=== PATIENT | female | born 1950 | race Two or more races ===

== ENCOUNTER 2016-12-03 07:43 | Observation (INO) | payer OTHER ==
--- NOTE | 2016-12-03 08:00 | CPEKG ---
Heart Rate: 74 RR Interval: 811 P-R Interval: 188 QRSD Interval: 82 QT Interval: 416 QTC Interval: 462 P [place]: 28 QRS [place]: -9 T Wave [place]: 41 EKG Severity - NORMAL ECG - EKG Impression: SINUS RHYTHM Electronically Signed By: Den Mayo 03-Dec-2016 08:31:29
[2016-12-03] MEDS ORDERED: ASPIRIN 81 MG CHEWABLE TAB PO ONE (08:29)
--- NOTE | 2016-12-03 08:29 | EDPHY ---
H & P Time Seen by Provider: 12/03/16 08:02 HPI/ROS: Chief complaint. Chest pain HPI. 66-year-old female presents emergency department with complaint of 2 weeks chest heaviness and pressure that radiates to her back. Symptoms are worse with walking and relieved by rest. Activities that she could do 1 month ago she can no longer do because it causes the chest pressure. 1 month ago she had a chest cold with cough and fever that has now resolved. For the past 2 weeks she feels better with lying down because when she gets up and walks around she has the chest pressure. Again symptoms are relieved by rest. She denies that she has shortness of breath with her symptoms of chest pressure. She does get slightly nauseated however. No diaphoresis. She has had no similar symptoms previously. She tells me no history heart lung, diabetes, hypertension history however she also tells me that whenever she goes to the dentist that they have told her that her blood pressure is high. No unusual leg pain or swelling ROS Constitutional. no fever/chills, no weakness Eyes. no problems with vision ENT. no sore throat, no nasal drainage Cardiovascular. Chest pressure radiating to back Respiratory. no shortness of breath, no cough Abdominal. No abdominal pain but slight nausea when she symptomatic . no problems urinating MS. no calf pain/swelling, no neck/back pain, no joint pain Skin. no rash Lymph. no swollen glands Neuro. Difficulty walking because of her symptoms. Past Medical/Surgical History: Past medical history heart murmur, bladder cancer Family history father of an [place] at age 75 Social History: , nonsmoker, no alcohol Smoking Status: Never smoked Physical Exam: General Appearance: Alert well-developed female mild distress vital signs significant for blood pressure 205/113 Eyes: Pupils equal and round no pallor or injection. ENT, Mouth: Mucous membranes are moist. Respiratory: There are no retractions, lungs are clear to auscultation. Cardiovascular: Regular rate and rhythm. Gastrointestinal: Abdomen is soft and nontender, no masses, bowel sounds normal. Neurological: Awake and alert, sensory and motor exams grossly normal. Skin: Warm and dry, no rashes. Musculoskeletal: Neck is supple nontender. Extremities symmetrical, full range of motion. Psychiatric: Patient is oriented X 3, there is no agitation. Constitutional: Initial Vital Signs Temperature (C) 36.6 C 12/03/16 08:07 Heart Rate 81 12/03/16 08:07 Respiratory Rate 18 12/03/16 08:07 Blood Pressure 192/116 H 12/03/16 08:07 O2 Sat (%) 100 12/03/16 08:07 O2 Delivery Mode Room Air Allergies/Adverse Reactions: Penicillins Allergy (Verified 12/03/16 13:47) Rash Home Medications: Medication Instructions Recorded Herbals/Supplements -Info Only 1 ea PO DAILY 12/03/16 Medical Decision Making - Diagnostics EKG Interpretation: EKG interpreted by me shows normal sinus rhythm normal interval. There is left axis deviation. QRS is otherwise normal. There is no significant ST elevation or depression. There is some T-wave flattening in leads V2 and V3. There is no arrhythmia. The rate is 74 No previous EKGs for comparison Imaging Results: Imaging Impressions Chest X-Ray 12/03/16 08:29 Impression: 1. Moderate-sized hiatal hernia. 2. T7 and T8 mild compressions of unknown age. Chest/Thorax CTA 12/03/16 09:29 Impression: 1. No evidence for pulmonary embolus. 2. Large hiatal hernia. 3. Mild diskoid atelectasis or scarring inferiorly in the lingula and right lung base. Results called and discussed with Dr. Den Mayo on December 03, 2016 at 10:25 a.m. Chest x-ray interpreted by me shows likely left lower lobe infiltrate. Procedures: IV normal saline, monitor Aspirin in the ED ED Course/Re-evaluation: Re-evaluation 9:15 a.m.--stable. Blood pressure 167/95 Re-evaluation 9:30 a.m.. Again patient is stable. Patient and I discussed her chest x-ray and laboratory evaluation so far including elevated D-dimer and recommendation of chest CT with IV contrast looking for pulmonary embolus. Patient expresses understanding and agreement Re-evaluation again patient her and I discussed lab results. We I recommended admission for further evaluation. They expressed understanding and agreement I consulted and discussed the case Dr. Gonzalez, hospitalist, who agrees to the admission Differential Diagnosis: This certainly sounds like unstable angina and acute coronary syndrome. I have considered congestive heart failure, pneumonia, congestive heart failure as well - Data Points Laboratory Results: Laboratory Results 12/03/16 09:00 12/03/16 09:00 0512/03/16 12/03/16 09:00 09:00 09:00 WBC 8.25 10^3/uL 10^3/uL (3.80-9.50) RBC 4.62 10^6/uL 10^6/uL (4.18-5.33) Hgb 13.7 g/dL g/dL (12.6-16.3) Hct 41.4 % % (38.0-47.0) MCV 89.6 fL fL (81.5-99.8) MCH 29.7 pg pg (27.9-34.1) MCHC 33.1 g/dL g/dL (32.4-36.7) RDW 13.9 % % (11.5-15.2) Plt Count 347 10^3/uL 10^3/uL (150-400) MPV 9.8 fL fL (8.7-11.7) Neut % (Auto) 58.3 % % (39.3-74.2) Lymph % (Auto) 28.5 % % (15.0-45.0) [place] % (Auto) 8.4 % % (4.5-13.0) Eos % (Auto) 3.5 % % (0.6-7.6) Baso % (Auto) 0.5 % % (0.3-1.7) Nucleat RBC Rel Count 0.0 % % (0.0-0.2) Absolute Neuts (auto) 4.81 10^3/uL 10^3/uL (1.70-6.50) Absolute Lymphs (auto) 2.35 10^3/uL 10^3/uL (1.00-3.00) Absolute Monos (auto) 0.69 10^3/uL 10^3/uL (0.30-0.80) Absolute Eos (auto) 0.29 10^3/uL 10^3/uL (0.03-0.40) Absolute Basos (auto) 0.04 10^3/uL 10^3/uL (0.02-0.10) Absolute Nucleated RBC 0.00 10^3/uL 10^3/uL (0-0.01) Immature Gran % 0.8 % % (0.0-1.1) Immature Gran # 0.07 10^3/uL 10^3/uL (0.00-0.10) PT 12.1 SEC SEC (12.0-15.0) INR 0.92 (0.83-1.16) APTT 29.3 SEC SEC (23.0-38.0) D-Dimer 0.83 ug/mLFEU H ug/mLFEU (0.00-0.50) Sodium 146 mEq/L H mEq/L (134-144) Potassium 4.1 mEq/L mEq/L (3.5-5.2) Chloride 106 mEq/L mEq/L (97-110) Carbon Dioxide 23 mEq/l mEq/l (22-31) Anion Gap 17 mEq/L H mEq/L (8-16) BUN 11 mg/dL mg/dL (7-23) Creatinine 0.7 mg/dL mg/dL (0.6-1.0) Estimated GFR > 60 Glucose 97 mg/dL mg/dL (70-100) Calcium 9.7 mg/dL mg/dL (8.5-10.4) Troponin I < 0.012 ng/mL ng/mL (0-0.034) NT-Pro-B Natriuret Pep 52 pg/mL pg/mL (0-125) Medications Given: Discontinued Medications Aspirin (Aspirin) 324 mg PO EDNOW ONE Stop: 12/03/16 08:30 Last Admin: 12/03/16 09:08 Dose: 324 mg Departure - Departure Disposition: [facility] Inpatient Acute Clinical Impression: Chest pain Qualifiers: Chest pain type: unspecified Qualified Code(s): R07.9 - Chest pain, unspecified Condition: Fair
[2016-12-03 09:06] LABS: % IMMATURE GRANULYOCYTES 0.8 % (0.0-1.1); ABSOLUTE IMMATURE GRANULOCYTES 0.07 10^3/uL (0.00-0.10); ADD DIFF? NO; ADD MORPH? NO; ADD SCAN? NO; ATYPICAL LYMPHOCYTE FLAG 10 (0-99); FRAGMENT RBC FLAG 0 (0-99); HEMATOCRIT 41.4 % (38.0-47.0); HEMOGLOBIN 13.7 g/dL (12.6-16.3); LEFT SHIFT FLG 0 (0-99); LIPEMIA HEMOLYSIS FLAG 80 (0-99); MEAN CELL HEMOGLOBIN 29.7 pg (27.9-34.1); MEAN CELL HEMOGLOBIN CONCENTR. 33.1 g/dL (32.4-36.7); MEAN CELL VOLUME 89.6 fL (81.5-99.8); MEAN PLATELET VOLUME 9.8 fL (8.7-11.7); PLATELET CLUMPS FLAG 0 (0-99); PLATELET COUNT 347 10^3/uL (150-400); RED BLOOD CELL COUNT 4.62 10^6/uL (4.18-5.33); RED CELL DISTRIBUTION WIDTH 13.9 % (11.5-15.2)
[2016-12-03 09:14] LABS: ANION GAP 17 mEq/L (8-16); CALCIUM 9.7 mg/dL (8.5-10.4); CARBON DIOXIDE 23 mEq/l (22-31); CHLORIDE 106 mEq/L (97-110); CREATININE 0.7 mg/dL (0.6-1.0); GLOMERULAR FILTRATION RATE > 60; GLUCOSE 97 mg/dL (70-100); POTASSIUM 4.1 mEq/L (3.5-5.2); SODIUM 146 mEq/L (134-144)
[2016-12-03 09:21] LABS: APTT 29.3 SEC (23.0-38.0); INR 0.92 (0.83-1.16); PROTIME(PATIENT) 12.1 SEC (12.0-15.0)
[2016-12-03 09:34] LABS: TROPONIN I < 0.012 ng/mL (0-0.034)
[2016-12-03] MEDS ORDERED: IOPAMIDOL (ISOVUE 370) 100 ML BTL IV ONE (09:35)
[2016-12-03] MEDS ORDERED: ZOLPIDEM TARTRATE 5 MG TAB PO PRN (16:34)
[2016-12-03] MEDS ORDERED: HYDROCODONE/APAP 5/325 TAB PO PRN (16:34)
[2016-12-03] MEDS ORDERED: ACETAMINOPHEN 325 MG TAB PO PRN (16:34)
[2016-12-03] MEDS ORDERED: ALBUTEROL 3 ML DEYVIAL IH PRN (16:34)
[2016-12-03] MEDS ORDERED: LORazepam 0.5 MG TAB PO PRN (16:34)
[2016-12-03] MEDS ORDERED: ONDANSETRON 4 MG/2 ML VIAL IVP PRN (16:34)
[2016-12-03] MEDS ORDERED: ONDANSETRON DISINTEGRATING 4 MG TAB PO PRN (16:34)
[2016-12-03] MEDS ORDERED: hydrALAZINE 20 MG/ML VIAL IVP PRN (16:37)
[2016-12-03] MEDS ORDERED: METOPROLOL TARTRATE 25 MG TAB PO ONE (16:38)
--- NOTE | 2016-12-03 17:06 | GHP ---
[f rep st] HISTORY AND PHYSICAL DATE OF ADMISSION: 12/03/2016 CHIEF COMPLAINT: Chest pressure. HISTORY OF PRESENT ILLNESS: A 66-year-old female who presents with a 2-week history of chest heaviness and pressure which radiates from the anterior chest into her back. The symptoms are intermittent, made worse when walking and standing, and relieved by resting and lying down. Four weeks [employer], she describes having a respiratory infection with cough and sputum production which was not treated with an antibiotic but resolved on its own approximately 2 weeks ago. Since that time, she has noted this intermittent chest pressure with some radiation, but it does not radiate to her neck or her arms. She has had intermittent nausea with it but no darlene diaphoresis. It is a pressure, not a pain, at best rated about 4/10. She denies having shortness of breath, fever, chills, cough, diaphoresis, abdominal pain, heartburn. She reports no prior history of cardiovascular disease, rhythm disturbance, or diabetes. Intermittently over the last several years, she has been told about hypertension by her dentist. She presented to her dentist with elevated blood pressure, and a procedure was stopped because of it. She did not take medication, returned, and had the procedure with normal blood pressure. PAST MEDICAL HISTORY: Denies asthma, allergies, high blood pressure, or diabetes in her own history or treatment. PAST SURGICAL HISTORY: Vaginal deliveries. 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 She reports it was good margins, and she did not receive any chemo or radiation therapy since, and following urologic examinations have shown no recurrence of the tumor. ALLERGIES: Penicillin she reports from her early years. REVIEW OF SYSTEMS: A 10-point review of systems is otherwise completely negative. Specifically, she denies any prior pulmonary disease, problems of gastrointestinal reflux, change in bowel function. Denies kidney disorder, previous kidney infections, or bladder problems. FAMILY HISTORY: Her father at age 75, probably of an [place]. Her mother is still alive. SOCIAL HISTORY: She is a nonsmoker and has never drank alcohol. She is and has had 4 children. PHYSICAL EXAMINATION: GENERAL: This is a pleasant, alert female who appears in no distress. VITAL SIGNS: Her blood pressure is significantly elevated at 192/116. She is afebrile. Pulse rate is in the 80s, respirations 18 and nonlabored, normal oxygen saturation. HEENT: Normal. NECK: Thyroid is not palpable nor is it tender. There is a very slight rash in the supraclavicular region, which she says is a residual of a rash that she developed from the respiratory infection she had 1 month [employer]. It is nonpruritic and easily blanching. Chest wall nontender to palpation. LUNGS: Clear to P and A without wheezing or rales. HEART: Singular S1, S2. There are soft heart sounds. A soft TARA along the LSB, grade 2/6, is heard without a gallop or AI JVP cannot be assessed. ABDOMEN: Obese. Normoactive bowel sounds. No masses , tenderness, or organomegaly. EXTREMITIES: No edema, cyanosis, or clubbing. PULSES: 2+ carotids, radials, femorals, DP, and PT pulses without bruits. SKIN : Warm and dry. Good capillary refill. LABORATORY DATA: CBC and BMP are essentially normal, although her initial anion gap was 17 with a sodium of 146. Her troponin initially was normal. BNP is 52 and normal. D-dimer was elevated at 0.83. Chest x-ray showed evidence of discoid atelectasis. I have reviewed the chest x -ray myself. There is also a moderate-size hiatal hernia noted and T7 and T8 mild compression fractures of an undetermined age. CTA of the chest reviewed by me on the PAC system showed no evidence of a pulmonary embolus. A large hiatal hernia and the mild discoid atelectasis or scarring is noted in the lingula and the right lung base. ASSESSMENT: 1. Acute and new hypertension. Patient reports prior elevations of blood pressure which were untreated. Today, she is noted to be significantly hypertensive which likely explains her symptoms. She has probably been significantly hypertensive for the last month or longer. I failed to note above that she has an ECG which showed only a sinus rhythm at approximately 74 and is normal to my reading. Plan here is to begin to treat her hypertension. I will initially use a dose of hydralazine and start a small dose of lisinopril. Ultimately, beta demi and lisinopril will probably be a good combination for this lady. 2. 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 PLAN: We will treat the lady's hypertension appropriately. Should her chest pressure sensation not resolve with normalization of her blood pressure or if her troponin series shows any elevation further, cardiac evaluation will be pursued. Please note above that the monitor rhythm shows only sinus rhythm without ectopy this evening. Billing: Admit to observation This admission required 45 minutes. /[id number]/MODL MTDD
[2016-12-03] MEDS: LISINOPRIL 10 MG TAB PO SCH (17:48)
[2016-12-03 19:53] LABS: COLOR PALE YELLOW; LEUKOCYTE ESTERASE,URINE NEGATIVE (NEGATIVE); NITRITE,URINE NEGATIVE (NEGATIVE)
[2016-12-03] MEDS: METOPROLOL TARTRATE 25 MG TAB PO SCH (22:46)
[2016-12-04 03:13] VITALS: RESP 14
[2016-12-04 07:00] LABS: TROPONIN I < 0.012 ng/mL (0-0.034)
[2016-12-04 07:31] VITALS: TEMP 97.8
[2016-12-04] MEDS ORDERED: METOPROLOL SUCCINATE XR 25 MG TAB PO SCH (12:00)
[2016-12-04] MEDS: METOPROLOL TARTRATE 25 MG TAB PO SCH (12:00)
[2016-12-04] MEDS: LISINOPRIL 10 MG TAB PO SCH (12:00)
[2016-12-04 12:18] VITALS: BP 121/75
[2016-12-04 12:20] VITALS: PULSE 62; O2SAT 93
--- NOTE | 2016-12-04 13:24 | GDS ---
[f rep st] DISCHARGE SUMMARY ADMISSION DIAGNOSES: Known acute diagnoses on this admission are: 1. Acute moderate uncontrolled hypertension. 2. Chest pain and chest pressure. CHRONIC DIAGNOSES: None. CONSULTATIONS: None. PROCEDURES: A CTA of the chest showing no evidence of a pulmonary embolus. HOSPITAL COURSE: A 66-year-old female who presented with a 2-week history of chest heaviness. She was noted to have significant, moderately severe hypertension with a blood pressure initially of 192 /116. She was given initial doses of hydralazine and started on lisinopril and metoprolol. Her blo od pressure declined nicely in the next 18 to 24 hours to 121/75. She had been noted to have chest pressure, ECG showed only sinus rhythm without acute changes. Troponin series was entirely negative . TSH was normal at 3.2, and her renal function was normal. Her D-dimer had been elevated at 0.83. A CTA of the chest and thorax showed no evidence of a pulmonary embolus, a large hiatal hernia, an d mild discoid atelectasis in the lingula and right lung base. Following decline of the patient's blood pressure she felt improved. She was mildly dizzy when firs t standing, but orthostatics showed that her pulse and blood pressure actually carey from lying to st anding. She had no syncopal episodes, monitor remained stable in a sinus rhythm throughout her hosp ital course without ectopy. DISCHARGE MEDICATIONS: Metoprolol XL 25 mg tablet daily. The patient desired to have a once a day drug rather than two low-dose drug treatment. PLAN: The patient will follow up with Dr. Ruma Mendoza in the next 2-3 weeks. She has agreed that she will take her blood pressure on a twice a day basis, record it, and take that to her physician o f referral. If she notes any further chest pressure or shortness of breath, she will return immedia tely to the emergency department. TIME: This discharge required 45 minutes, greater than 50% to psychotherapist counselor and coordinate on the patient 's care. /[id number]/MODL
== END 2016-12-04 14:50 | disposition home or self-care (01) ==
LOC: CED 07:43 → CEDHOLD 10:45 → F2W 12:15
PROVIDERS: ADMIT Internal Medicine Pulmonary Disease; ATTEND Internal Medicine Pulmonary Disease
DX: I10 Essential (primary) hypertension (principal); R07.9 Chest pain, unspecified; K46.9 Unspecified abdominal hernia without obstruction or gangrene; Z85.51 Personal history of malignant neoplasm of bladder
CPT/HCPCS: 71020; 71275; 93005; 99285; G0378; Q9967; 80048-PO; 83880-PO; 84484-PO; 85025-PO; 85378-PO; 85610-PO; 85730-PO